=== PATIENT | female | born 1975 | race Caucasian/White ===

== ENCOUNTER → 2021-01-31 | Day surgery (SDC) | payer OTHER ==
[2021-01-31 11:13] LABS: HEMOGLOBIN 12.8 gm/dl (12.3-15.3); RED BLOOD COUNT 3.95 M/UL (4.00-5.10); WHITE BLOOD COUNT 3.7 K/UL (4.5-11.0)
== END | disposition home or self-care (01) ==
LOC: OR 08:47
PROVIDERS: Obstetrics & Gynecology
DX: N89.0 Mild vaginal dysplasia (principal); A63.0 Anogenital (venereal) warts; N87.0 Mild cervical dysplasia; Z90.710 Acquired absence of both cervix and uterus; Z20.822 Contact with and (suspected) exposure to COVID-19
CPT/HCPCS: 36415; 81001; 85025; 93005; J1100; J1885; J2001; J2250; J2405; J2704; J2795; J3010; J7120